=== PATIENT | female | born 1940 | race Caucasian/White ===

== ENCOUNTER 2024-07-28 05:52 | Emergency (ER) | payer OTHER ==
[~2024-07-28] VITALS: Ht 165.1 cm; Wt 59.0 kg
[2024-07-28 06:37] LABS: BASOPHILS % (AUTO) 0.4 % (0.0-2.0); HEMOGLOBIN 14.3 g/dL (12.0-16.0); LYMPHOCYTES # (AUTO) 1.5 K/uL (1.0-4.8); LYMPHOCYTES % (AUTO) 20.5 % (22.0-44.0); MEAN CORPUSCULAR HEMOGLOBIN 29.8 pg (26.0-34.0); MEAN CORPUSCULAR VOLUME 88 fL (80-100); MONOCYTES # (AUTO) 0.9 K/uL (0.1-1.0); MONOCYTES % (AUTO) 12.1 % (2.0-9.0); PLATELET COUNT (AUTO) 164 K/uL (150-450); WHITE BLOOD COUNT (AUTO) 7.5 K/uL (4.5-11.0)
[2024-07-28 06:50] LABS: D-DIMER 1.09 mg/L FEU (0.00-0.50)
[2024-07-28 07:00] LABS: CALCIUM, TOTAL 9.3 mg/dL (8.8-10.5); CREATININE 1.01 mg/dL (0.60-1.30); POTASSIUM 3.2 mmol/L (3.5-5.1)
[2024-07-28 07:03] VITALS: PULSE 73; RESP 24; O2SAT 94
[2024-07-28 07:03] LABS: COVID AG,FIA SOURCE NASAL SWAB
[2024-07-28] MEDS: IPRATROPIUM BROMIDE 0.5 MG/2.5 ML NEB SOLUTION NEB ONE (07:03)
[2024-07-28] MEDS: ALBUTEROL SULFATE 2.5 MG/0.5 ML NEB SOLUTION NEB ONE (07:03)
[2024-07-28 07:04] VITALS: PULSE 75; RESP 21; O2SAT 92
[2024-07-28 07:08] LABS: TROPONIN I-HIGH SENSITIVITY 24 ng/L (<51)
[2024-07-28 07:19] VITALS: PULSE 71; RESP 25; O2SAT 99
[2024-07-28 07:39] LABS: PROTHROMBIN TIME 10.9 SEC (9.4-11.6)
[2024-07-28 07:40] LABS: SARS-COV2 (COVID) ANTIGEN,FIA Negative (Negative)
[2024-07-28 07:41] LABS: INFLUENZA TYPE A NEGATIVE FOR TYPE A (NEGATIVE); INFLUENZA TYPE B NEGATIVE FOR TYPE B (NEGATIVE)
[2024-07-28 07:42] LABS: RESPIRATORY SYNCYTIAL VIRS,FIA NEGATIVE (Negative)
[2024-07-28] MEDS: SODIUM CHLORIDE 0.9% 1,000 ML IV ONE (07:49)
[2024-07-28] MEDS: POTASSIUM CHLORIDE 20 MEQ ER TABLET PO ONE (08:05)
[2024-07-28] MEDS: AZITHROMYCIN 500 MG/NS 250 ML IV ONE (08:05)
[2024-07-28] MEDS: CefTRIAXone 1 GM/DEXTROSE 50 ML IV ONE (08:05)
[2024-07-28 08:27] LABS: LACTIC ACID 0.9 mmol/L (0.4-2.0)
[2024-07-28 08:55] VITALS: BP 110/54; PULSE 62; RESP 16; TEMP 97.6; O2SAT 95
== END 2024-07-28 10:45 | disposition short-term general hospital (02) ==
LOC: EMS 05:53
DX: J44.1 Chronic obstructive pulmonary disease with (acute) exacerbation (principal); J18.9 Pneumonia, unspecified organism; E87.6 Hypokalemia; F17.210 Nicotine dependence, cigarettes, uncomplicated; Z20.822 Contact with and (suspected) exposure to COVID-19
CPT/HCPCS: 99291; 96365; 71045; 87426; 80048; 82550; 83605; 83880; 87420; 84484; 85025; 85379; 85610; 87040; 87804; 36415; 94640; 93005; 96368; J0456; J0696; J7613